=== PATIENT | female | born 1970 | race African-American/Black ===

== ENCOUNTER → 2020-02-03 08:58 | Outpatient (CLI) | payer BC, SELFPAY ==
--- NOTE | ~2020-02-03 | MR_ITS ---
EXAMINATION: MR cervical spine wo con DATE: 02/03/2020 10:25 INDICATION: Multiple sclerosis. TECHNIQUE: Magnetic resonance imaging (MRI) of the cervical spine was performed without intravenous c ontrast. Sequences included sagittal T2-weighted FSE, sagittal STIR FSE, sagittal T1-weighted FSE, ax ial MERGE, and axial T2-weighted FSE. COMPARISON: None FINDINGS: Bone alignment is normal. Vertebral body heights and intervertebral disc heights are normal . The spinal cord signal intensity is normal. The following disc levels are specifically discussed: C2-C3: The disc does not extend beyond the endplate margin. There is no uncovertebral joint osteoarth ritis. There is mild bilateral facet joint osteoarthritis. There is no neural foraminal stenosis. The re is no central canal stenosis. C3-C4: The disc does not extend beyond the endplate margin. There is no uncovertebral joint osteoarth ritis. There is mild bilateral facet joint osteoarthritis. There is no neural foraminal stenosis. The re is no central canal stenosis. C4-C5: There is a central extrusion. There is no uncovertebral joint osteoarthritis. There is no face t joint osteoarthritis. There is no neural foraminal stenosis. There is mild central canal stenosis w ith ventral indentation of spinal cord. C5-C6: There is a left central protrusion. There is no uncovertebral joint osteoarthritis. There is m ild right facet joint osteoarthritis. There is no neural foraminal stenosis. There is mild central ca nal stenosis. C6-C7: There is a central protrusion. There is no uncovertebral joint osteoarthritis. There is no fac et joint osteoarthritis. There is no neural foraminal stenosis. There is no central canal stenosis. C7-T1: The disc does not extend beyond the endplate margin. There is no uncovertebral joint osteoarth ritis. There is no facet joint osteoarthritis. There is no neural foraminal stenosis. There is no kofi tral canal stenosis. IMPRESSION: 1. Normal spinal cord. 2. Mild cervical spondylosis. Reviewed, dictated and finalized at location A.
--- NOTE | ~2020-02-03 | MR_ITS ---
EXAMINATION: MR thoracic spine wo con DATE: 02/03/2020 10:25 INDICATION: Multiple sclerosis. TECHNIQUE: Magnetic resonance imaging (MRI) of the thoracic spine was performed without intravenous c ontrast. Sagittal localizer T1-weighted FSE of the cervical spine was obtained. Thoracic spine sequen татьяна included sagittal T2-weighted FSE, sagittal T1-weighted FSE, sagittal T2-weighted FS FSE, and axi al T2-weighted FSE. COMPARISON: None FINDINGS: There is 3 degrees dextrocurvature of thoracic spine. Vertebral body heights are normal. Th ere is mildly decreased disc height from T5-T6 through T9-T10. There is mild bilateral facet joint os teoarthritis at T8-T9. The discs are bulging at T8-T9 through T10-T11. There is mild bilateral neural foraminal stenosis at T8-T9, T9-T10, T10-T11. No central canal stenosis. The spinal cord signal inte nsity is normal. IMPRESSION: 1. Normal spinal cord. 2. Mild thoracic spondylosis. Reviewed, dictated and finalized at location A.
--- NOTE | ~2020-02-03 | MR_ITS ---
EXAMINATION: MR brain/brain stem wo con DATE: 02/03/2020 10:37 INDICATION: Multiple sclerosis. TECHNIQUE: Magnetic resonance imaging (MRI) of the brain and brainstem was performed without intraven ous contrast. Sequences included sagittal and axial T1-weighted FLAIR, axial T1-weighted FSE, axial d iffusion-weighted FS EPI, sagittal T2-weighted FLAIR, axial T2*-weighted GRE, axial T2-weighted FLAIR Propeller, and axial T2-weighted Propeller. Apparent diffusion coefficient (ADC) maps were created. COMPARISON: None. FINDINGS: There are approximately three total lesions of increased T2-weighted signal intensity in th e brain. Of these lesions, one is periventricular, none are juxtacortical, and none are infratentoria l. There is no acute ischemic infarct or intracranial hemorrhage. The ventricles are normal in size. There is mild mucosal thickening in the paranasal sinuses. The mastoid air cells are normal. The orbi ts are normal. IMPRESSION: 1. Three white matter lesions, which may be multiple sclerosis. Reviewed, dictated and finalized at location A.
== END ==
PROVIDERS: Visit Provider Psychiatry & Neurology Neurology
DX: G35 Multiple sclerosis (principal); M47.894 Other spondylosis, thoracic region; M47.892 Other spondylosis, cervical region; R93.0 Abnormal findings on diagnostic imaging of skull and head, not elsewhere classified
CPT/HCPCS: 70551; 72141; 72146

== ENCOUNTER 2020-02-21 08:46 | Outpatient (CLI) | payer BC, SELFPAY ==
[2020-02-17 09:39] VITALS: BMI 37.9
[2020-02-21] VITALS (7 sets, daily range): BP systolic 129–150; BP diastolic 84–94; PULSE 63–72; RESP 16; O2SAT 94–96
--- NOTE | ~2020-02-21 | XR_ITS ---
CORRECTED REPORT Procedure description corrected to XR felicitas hartmann diag w/imaging. 02/28/20 se EXAMINATION: XR felicitas hartmann diag w/imaging EXAM DATE: 02/21/2020 11:22 INDICATION: Blurred vision. Unilateral hand paresthesia. Clinical concern for multiple sclerosis. TECHNIQUE: Procedure performed and completed on 02/21/2020 11:22. Informed consent was obtained from the patient for doing this procedure. I discussed benefits and risks including bleeding, infection, backache and headache. Alternatives also discussed. The DAP for this procedure was 11 Gycm2. A timeout procedure was performed. The back was prepped in standard sterile fashion with Betadine. L3/4 entry site was chosen under fluoroscopic guidance and infiltrated with 1% lidocaine. The thecal sac was then accessed from a left paracentral approach using a 5 22G needle. A total of 14 mL of clear cerebral spinal fluid were then drained and placed in 4 consecutive vials which were labeled and sent to lab for analysis. There were no immediate complications. IMPRESSION: Status post fluoroscopic guided lumbar puncture. Reviewed, dictated and finalized at location A. MTDD
[2020-02-21 09:26] LABS: Mean Platelet Volume 9.8 fl (7.4-10.4); Platelet Count Result 310 k/mm3 (150-375)
[2020-02-21 09:33] LABS: Prothrombin Time 13.2 Seconds (11.1-14.7)
[2020-02-21 11:24] LABS: Glucose CSF 55 mg/dL (40-70); Total Protein CSF 39 mg/dL (12-60)
[2020-02-21 11:26] LABS: Appearance CSF Clear (Clear); CSF source CSF; Color CSF Colorless (Colorless); Nucleated Cell CSF 6 /uL (0-5)
[2020-02-21 11:27] LABS: Lymphocytes CSF 95 % (40-80); Monocytes CSF 5 % (15-45); Red Blood Cell CSF 14 (0-2)
--- NOTE | 2020-02-21 11:33 | SUR.PHASEII ---
DR. JOHNSON CALLED RE: ORDERS; HE STATES THAT PT CAN EAT/DRINK AND MAY HAVE HOB ELEVATED 30 DEGREES WHEN TAKING PO; OTHERWISE TO LAY FLAT. NO NEED TO CALL HIM BEFORE SHE LEAVES IF DOING WELL.
--- NOTE | 2020-02-21 11:42 | SUR.PHASEII ---
LAB CALLED WITH CSF GRAM STAIN RESULTS; DR. JOHNSON CALLED; LEFT MESSAGE TO HAVE HIM CALL BACK FOR RESULTS.
--- NOTE | 2020-02-21 11:47 | SUR.PHASEII ---
DR. JOHNSON CALLED BACK; CSF GRAM STAIN RESULTS GIVEN TO HIM.
--- NOTE | 2020-02-21 12:51 | SUR.PHASEII ---
VOIDED X 1.
[2020-02-23 17:11] LABS: Angiotensin Converting Enzyme 57 U/L (9-67)
[2020-02-24 06:53] LABS: Lyme Disease DNA Not detected (Not Detected); Specimen Source CSF
[2020-02-27 13:25] LABS: Angiotensi Converting Enzy CSF 7 U/L (<=15)
[2020-02-28 07:07] LABS: Albumin, CSF 10.3 mg/dL (8.0-42.0); Albumin, Serum 3.5 g/dL (3.5-5.2); IgG Index, CSF 1.99 (<0.66); IgG, CSF 10.9 mg/dL (0.8-7.7); Immunoglobulin G, Serum 1860 mg/dL (600-1640); Myelin Basic Protein, CSF <2.0 mcg/L (2.0-4.0)
== END 2020-02-21 13:05 | disposition home or self-care (01) ==
PROVIDERS: Radiology Diagnostic Radiology; Visit Provider Psychiatry & Neurology Neurology
DX: G35 Multiple sclerosis (principal)
CPT/HCPCS: 36415; 62328; 82040; 82042; 82164; 82784; 82945; 83873; 83916; 84157; 85049; 85610; 87070; 87801; 88108; 89051

== ENCOUNTER 2020-03-09 10:08 | Outpatient (CLI) | payer OTHER, SELFPAY ==
[2020-03-09 10:47] LABS: Alanine Aminotransferase 19 U/L (4-35); Albumin Level 4.1 g/dL (3.5-5.1); Alkaline Phosphatase 92 U/L (38-126); Aspartate Amino Transferase 22 U/L (14-36); Bilirubin,Total 0.8 mg/dL (0.2-1.3)
== END 2020-03-09 10:09 | disposition home or self-care (01) ==
LOC: ANHLAB 10:11
PROVIDERS: Visit Provider Psychiatry & Neurology Neurology
DX: G35 Multiple sclerosis (principal)
CPT/HCPCS: 36415; 80076

== ENCOUNTER 2020-03-23 16:57 | Outpatient (CLI) | payer OTHER, SELFPAY ==
[2020-03-23 17:41] LABS: Basophils Percent Auto 0.9 % (0.2-1.2); Eosinophils Absolute Auto 0.2 K/mm3 (0-0.3); Eosinophils Percent Auto 3.6 % (0-4.4); Hematocrit 37.8 % (37.0-47.0); Hemoglobin 13.1 g/dL (12.0-15.0); Lymphocytes Absolute Auto 2.04 K/mm3 (0.9-3.2); Lymphocytes Percent Auto 43.8 % (18.3-44.2); Mean Corpuscular HGB Conc 34.7 g/dl (32-36); Mean Corpuscular Hemoglobin 29.6 pg (26-34); Mean Corpuscular Volume 85.5 fl (80-100); Mean Platelet Volume 9.5 fl (7.4-10.4); Monocytes Absolute Auto 0.2 K/mm3 (0.1-0.6); Monocytes Percent Auto 4.5 % (2.6-8.5); Neutrophils Absolute Auto 2.2 K/mm3 (1.3-6.7); Neutrophils Percent Auto 47.2 % (45.5-73.1); Platelet Count Result 353 k/mm3 (150-375); Red Blood Count 4.42 M/mm3 (4.2-5.4); Red Cell Distribution Width 12.4 % (11.5-14.5); White Blood Count 4.7 K/mm3 (4.5-10.0)
[2020-04-03 15:58] LABS: Reference Lab Test Result Negative
[2020-04-04 11:20] LABS: Reference Lab Test Result Negative
== END 2020-03-23 16:58 | disposition home or self-care (01) ==
LOC: ANHLAB 16:59
PROVIDERS: Visit Provider Psychiatry & Neurology Neurology
DX: G35 Multiple sclerosis (principal)
CPT/HCPCS: 36415; 85025; 86255

== ENCOUNTER 2020-05-31 09:50 | Outpatient (CLI) | payer OTHER, SELFPAY ==
[2020-05-31 10:17] LABS: Basophils Percent Auto 0.6 % (0.2-1.2); Eosinophils Absolute Auto 0.1 K/mm3 (0-0.3); Eosinophils Percent Auto 2.1 % (0-4.4); Hematocrit 38.4 % (37.0-47.0); Hemoglobin 13.1 g/dL (12.0-15.0); Lymphocytes Absolute Auto 1.44 K/mm3 (0.9-3.2); Lymphocytes Percent Auto 43.8 % (18.3-44.2); Mean Corpuscular HGB Conc 34.1 g/dl (32-36); Mean Corpuscular Hemoglobin 29.8 pg (26-34); Mean Corpuscular Volume 87.5 fl (80-100); Mean Platelet Volume 9.7 fl (7.4-10.4); Monocytes Absolute Auto 0.2 K/mm3 (0.1-0.6); Monocytes Percent Auto 4.9 % (2.6-8.5); Neutrophils Absolute Auto 1.6 K/mm3 (1.3-6.7); Neutrophils Percent Auto 48.6 % (45.5-73.1); Platelet Count Result 321 k/mm3 (150-375); Red Blood Count 4.39 M/mm3 (4.2-5.4); Red Cell Distribution Width 12.6 % (11.5-14.5); White Blood Count 3.3 K/mm3 (4.5-10.0)
[2020-05-31 12:05] LABS: Alanine Aminotransferase 18 U/L (4-35); Albumin Level 4.1 g/dL (3.5-5.1); Alkaline Phosphatase 99 U/L (38-126); Anion Gap 7 mmol/L (8-16); Aspartate Amino Transferase 23 U/L (14-36); Bilirubin,Total 0.4 mg/dL (0.2-1.3); Blood Urea Nitrogen 13 mg/dL (7-17); Carbon Dioxide 28 mmol/L (22-30); Chloride 105 mmol/L (98-107); Estimated Glomerular Filt Rate > 60; Glucose 94 mg/dL (65-105); Potassium 3.9 mmol/L (3.4-5.0); Sodium 140 mmol/L (137-145)
== END 2020-05-31 09:51 | disposition home or self-care (01) ==
PROVIDERS: PCP Family Medicine; Visit Provider Psychiatry & Neurology Neurology
DX: G35 Multiple sclerosis (principal)
CPT/HCPCS: 36415; 80053; 82248; 85025

== ENCOUNTER 2020-10-24 14:35 | Outpatient (CLI) | payer OTHER, SELFPAY ==
[2020-10-24 15:02] LABS: Hematocrit 41.2 % (37.0-47.0); Hemoglobin 14.1 g/dL (12.0-15.0); Mean Corpuscular HGB Conc 34.2 g/dl (32-36); Mean Corpuscular Hemoglobin 29.2 pg (26-34); Mean Corpuscular Volume 85.3 fl (80-100); Mean Platelet Volume 9.2 fl (7.4-10.4); Platelet Count Result 324 k/mm3 (150-375); Red Blood Count 4.83 M/mm3 (4.2-5.4); Red Cell Distribution Width 12.6 % (11.5-14.5); White Blood Count 3.7 K/mm3 (4.5-10.0)
[2020-10-24 15:22] LABS: Alanine Aminotransferase 23 U/L (4-35); Albumin Level 4.5 g/dL (3.5-5.1); Alkaline Phosphatase 102 U/L (38-126); Anion Gap 6 mmol/L (8-16); Aspartate Amino Transferase 25 U/L (14-36); Bilirubin,Total 0.5 mg/dL (0.2-1.3); Blood Urea Nitrogen 12 mg/dL (7-17); Calcium 9.2 mg/dL (8.4-10.2); Carbon Dioxide 28 mmol/L (22-30); Chloride 105 mmol/L (98-107); Estimated Glomerular Filt Rate > 60; Glucose 92 mg/dL (65-105); Potassium 4.2 mmol/L (3.4-5.0); Sodium 139 mmol/L (137-145)
== END 2020-10-24 14:36 | disposition home or self-care (01) ==
LOC: ANHLAB 14:41
PROVIDERS: PCP Family Medicine; Visit Provider Psychiatry & Neurology Neurology
DX: G35 Multiple sclerosis (principal)
CPT/HCPCS: 36415; 80053; 85027

== ENCOUNTER 2022-04-03 09:35 | Emergency (ER) | payer OTHER, SELFPAY ==
--- NOTE | 2022-04-03 09:40 | ED.URI ---
HPI - URI/Sore Throat General Chief Complaint: Upper Respiratory Infection Stated Complaint: Coughing Time Seen by Provider: 04/03/22 09:40 Source: patient Mode of arrival: ambulatory Limitations: no limitations History of Present Illness HPI Narrative: Ms. Rosales is a 52-year-old female patient presenting to the clinic today with complaints of coughing and nasal congestion. She reports that she has had exposure to someone that tested positive for COVID at work. Her work is requiring her to be tested today. 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 Related Data Home Medications Medication Instructions Recorded Confirmed amlodipine 10 mg tablet 10 mg PO DAILY 04/03/22 04/03/22 diroximel fumarate 231 mg 231 mg PO DAILY 04/03/22 04/03/22 capsule,delayed release (Vumerity) paroxetine HCl 10 mg tablet 10 mg PO DAILY 04/03/22 04/03/22 Allergies Allergy/AdvReac Type Severity Reaction Status Date / Time No Known Allergies Allergy Verified 04/03/22 09:44 Review of Systems Review of Systems: Pertinent positives per HPI. Patient denies any fever, chills, rash, headache, visual changes, dizziness, runny nose, sore throat, shortness of breath, chest pain, palpitations, nausea, vomiting, diarrhea, constipation, abdominal pain, or any urinary issues. PMFSH Comments At the time of my signature, I reviewed and agree with the nursing past medical, surgical, social, and family history. There is no relevant family history pertinent to the patient complaint. Exam Narrative: General: Well-developed, well nourished, in no apparent distress Head: Normocephalic, atraumatic Eyes: Pupils equally round and reactive to light bilaterally, EOM intact, sclera and conjunctive clear, no discharge, lids normal Ears: TMs intact and congested, ear canals clear, no drainage, grossly hearing normal. Nose: Nares patent, clear nasal discharge, no inflammation, no sinus tenderness. Mouth: Oropharynx without lesions or masses, good dentition, MMM. Oropharynx red, postnasal drip Neck: Supple, trachea midline, no enlargement of anterior or posterior cervical nodes, no thyroid masses or goiter palpable. Cardio: Regular rate and rhythm, s1 and s2 normal, no murmur appreciated. Resp: Clear to auscultation bilaterally anteriorly and posteriorly, no rhonchi, rales, wheezing or rubs Course Course Emergency Course: Portions of this record may have been created with voice recognition software. Level of Care: Express Care Visit Vital Signs Vital signs: Vital signs reviewed MDM - URI/Sore Throat MDM Narrative Medical decision making narrative: At the time of visit patient is resting comfortably on the exam table. COVID testing was performed and was positive in the clinic. Discussed the use of antivirals and patient would like to take the Paxlovid. Differential Diagnosis Differential diagnosis: Likely upper respiratory infection, otitis media, sinusitis, viral infection, bronchitis, influenza, pharyngitis and other (COVID) Discharge Plan Discharge Clinical Impression: COVID-19 Patient Disposition: Home, Self-Care Condition: Stable Instructions: Antibiotic Form, COVID-19 (Coronavirus Disease 2019) (ED), How to Recover from COVID-19 at Home (ED) Additional Instructions: Take prescription medications only as prescribed- paxlovid Increase fluids and stay well hydrated Tylenol/motrin for pain/fever Flonase and OTC antihistamines as directed Vicks vapor rub to open sinuses Sinus rinses for congestion Cepacol spray, cough drops, throat lozenges, warm tea with honey/lemon, gargle salt water to soothe throat BRAT diet for diarrhea Clear liquids x 24 hours then advance as tolerated for nausea/vomiting May return to the clinic if symptoms worsen Go to the ED if you develop a worsening in your condition- high fever not controlled by Tylenol or Motrin, dehydration, weakness, lethargy, shortness of breath, or chest pain. Follow up with
[2022-04-03 09:47] VITALS: BP 141/95; PULSE 108; RESP 16; TEMP 38.4; O2SAT 98
== END 2022-04-03 10:05 | disposition home or self-care (01) ==
PROVIDERS: Emergency Provider Nurse Practitioner Family; PCP Family Medicine
DX: U07.1 COVID-19 (principal); I10 Essential (primary) hypertension; M19.90 Unspecified osteoarthritis, unspecified site
CPT/HCPCS: 87426; 99213; C9803; G0463